=== PATIENT | female | born 2000 ===

== ENCOUNTER → 2025-07-18 14:34 | Outpatient (REF) | payer BC, SELFPAY | LOC: DHSLP 14:34 | PROVIDERS: ATTENDING PHYSICIAN Internal Medicine; FAMILY PHYSICIAN Physician Assistant Medical | DX: G47.00 Insomnia, unspecified (principal); G47.61 Periodic limb movement disorder | CPT/HCPCS: 95810 ==

== ENCOUNTER → 2025-07-19 08:25 | Outpatient (REF) | payer BC, SELFPAY | LOC: DHSLP 08:25 | PROVIDERS: ATTENDING PHYSICIAN Internal Medicine; FAMILY PHYSICIAN Physician Assistant Medical | DX: G47.11 Idiopathic hypersomnia with long sleep time (principal) | CPT/HCPCS: 95805 ==